=== PATIENT | male | born 1950 | race Caucasian/White ===

== ENCOUNTER → 2019-09-14 | Outpatient (CLI) | payer OTHER, BC ==
[~2019-09-14] MED LIST: ASPIRIN325 PO; BENICAR HCT 201 EACH PO; CLONIDINE HCL0.2 M2 PO; LASIX 20 MG TAB20 MG PO; LIPITOR80 MG PO; PLAVIX 75 MG TA75 MG PO; TOPROL XL100 MG PO
== END ==
LOC: SJCVC 09:56
DX: R94.31 Abnormal electrocardiogram [ECG] [EKG] (principal); I45.4 Nonspecific intraventricular block; I25.10 Atherosclerotic heart disease of native coronary artery without angina pectoris; I63.412 Cerebral infarction due to embolism of left middle cerebral artery; E78.5 Hyperlipidemia, unspecified; G47.33 Obstructive sleep apnea (adult) (pediatric); Z95.5 Presence of coronary angioplasty implant and graft; Z79.899 Other long term (current) drug therapy; Z87.891 Personal history of nicotine dependence

== ENCOUNTER → 2020-03-20 | Outpatient (CLI) | payer OTHER, BC | LOC: SJCVC 10:31 | PROVIDERS: ATTEND Internal Medicine | DX: I45.4 Nonspecific intraventricular block (principal); R94.31 Abnormal electrocardiogram [ECG] [EKG]; I25.10 Atherosclerotic heart disease of native coronary artery without angina pectoris; I10 Essential (primary) hypertension; E78.5 Hyperlipidemia, unspecified; I63.412 Cerebral infarction due to embolism of left middle cerebral artery; G47.33 Obstructive sleep apnea (adult) (pediatric) ==

== ENCOUNTER → 2020-09-25 | Outpatient (CLI) | payer OTHER, BC | LOC: SJCVC 11:56 | PROVIDERS: ATTEND Internal Medicine | DX: R94.31 Abnormal electrocardiogram [ECG] [EKG] (principal); I25.10 Atherosclerotic heart disease of native coronary artery without angina pectoris; I10 Essential (primary) hypertension; E78.5 Hyperlipidemia, unspecified; I63.412 Cerebral infarction due to embolism of left middle cerebral artery; G47.33 Obstructive sleep apnea (adult) (pediatric); I73.9 Peripheral vascular disease, unspecified; Z95.5 Presence of coronary angioplasty implant and graft; Z88.0 Allergy status to penicillin; Z79.82 Long term (current) use of aspirin; Z79.899 Other long term (current) drug therapy; Z87.891 Personal history of nicotine dependence ==

== ENCOUNTER → 2021-04-15 | Outpatient (CLI) | payer OTHER, BC | LOC: SJCVC 12:55 | PROVIDERS: ATTEND Internal Medicine | DX: E78.5 Hyperlipidemia, unspecified (principal); I25.10 Atherosclerotic heart disease of native coronary artery without angina pectoris; I10 Essential (primary) hypertension; G47.33 Obstructive sleep apnea (adult) (pediatric); I63.412 Cerebral infarction due to embolism of left middle cerebral artery; F17.200 Nicotine dependence, unspecified, uncomplicated; Z79.82 Long term (current) use of aspirin; Z79.899 Other long term (current) drug therapy; Z88.8 Allergy status to other drugs, medicaments and biological substances ==